=== PATIENT | male | born 1980 | race Caucasian/White ===

== ENCOUNTER 2019-10-24 02:17 | Inpatient (IN) ==
[2019-10-24] MEDS ORDERED: NS 1,000 ML IV ONE ×3 (02:44→11:05)
[2019-10-24] MEDS ORDERED: ATIVAN IV ONE ×3 (02:44→11:05)
--- NOTE | 2019-10-24 02:58 | PROVIDER DOCUMENTATION ---
HPI-Psychological Disorder - General Chief Complaint: Withdrawals Stated Complaint: MUSCEL SPASMS Time Seen by Provider: 10/24/19 02:44 Source: patient Allergies/Adverse Reactions: Patient Allergies Allergy/AdvReac Type Severity Reaction Status Date / Time No Known Allergies Allergy Verified 10/24/19 02:32 Home Medications: Home Medication List Medication Instructions Recorded Confirmed Last Taken Type NK [No Home Medications] 10/24/19 10/24/19 Unknown History - History of Present Illness-Psych Nature of Presenting Problem: Patient notes that he took one of his girlfriend's Seroquel this evening to help him sleep. He notes that he normally takes a drug that he gets from the gas station, "[employer] Red" about 14 tablets daily. He notes that he was out today and felt that he might be withdrawing. Notes that since taking the Seroquel, he has not been able to stop moving his body and feels that he is having muscle cramps. Onset/Duration: reports: this evening Timing: reports: still present, getting worse Severity: reports: moderate Situational problems related to:: reports: N/A Psychiatric Complaints: reports: ingestion Substance Use: reports: opiates Previous psych related hospitalizations?: No Similar Symptoms Previously?: No Recently seen or treated by another doctor?: No - Suicidal Ideation Clinician's estimation of suicide risk?: low risk Review of Systems - Adult - REVIEW OF SYSTEMS - ADULT Constitutional: reports: no symptoms reported Eyes: reports: no symptoms reported Ears, Nose, Mouth & Throat: reports: no symptoms reported Cardiovascular: reports: no symptoms reported Respiratory: reports: no symptoms reported Gastrointestinal: reports: no symptoms reported Genitourinary: reports: no symptoms reported Musculoskeletal: reports: see HPI Integumentary: reports: no symptoms reported Neurological: reports: no symptoms reported Psychiatric: reports: see HPI Endocrine: reports: no symptoms reported Hematologic/Lymphatic: reports: no symptoms reported Allergic/Immunologic: reports: no symptoms reported All Other Systems: Reviewed and Negative Past History - Adult - PAST MEDICAL HISTORY-ADULT Review of Records: reports: Old Records Reviewed, Nursing Assessment Review, Me dications Reviewed, Social history reviewed & non-contributory. Major Childhood Illnesses: reports: denies history Cardiovascular: reports: denies history Respiratory: reports: denies history Gastrointestinal: reports: denies history Obstetrical/Gynecological: reports: denies history Genitourinary: reports: denies history Musculoskeletal: reports: denies history Neurological: reports: denies history Endocrine/Immune: reports: denies history Other Conditions: reports: denies history - IMMUNIZATION STATUS Childhood Immunizations: See Nurse Assessment Flu Vaccine: See Nurse Assessment - FAMILY HISTORY Family History: reviewed, not pertinent Physical Exam-Psych Focus - Physical Exam-Psych Initial Vital Signs Reviewed: Yes Appearance: no apparent distress, no memory impairment, anxious, disheveled Neurological: oriented x 3 Behavior/Eye Contact/Speech: cooperative, good eye contact, normal speech Thoughts/Hallucinations: normal thought pattern HENMT: normocephalic/atraumatic, moist mucous membranes, normal ENT inspection Neck: non-tender, full range of motion, supple Respiratory: chest non-tender, lungs clear, normal breath sounds Cardiovascular: normal peripheral pulses, regular rate, rhythm, no edema, no gallop, no JVD, no murmur Abdominal Exam: normal bowel sounds, non tender Lymphatic: no adenopathy Back Exam: normal inspection Extremity: normal range of motion, non-tender, other (choreiform movements of bilateral UE and LE) Integumentary: normal color, normal turgor, warm/dry Progress - PLAN OF CARE/RESULTS Progress/Plan/Lab Results: Vital Signs - 8 hr 10/24/19 04:00 10/24/19 05:00 10/24/19 07:16 Temperature Pulse Rate 127 H 120 H 98 H Respiratory Rate 24 25 H 16 Blood Pressure 158/105 164/113 141/80 O2 Sat by Pulse Oximetry 95 98 93 L 10/24/19 08:26 10/24/19 08:52 Temperature 98.9 F Pulse Rate 99 H 73 Respiratory Rate 16 16 Blood Pressure 150/093 127/84 O2 Sat by Pulse Oximetry 99 Laboratory Results - last 24 hr 10/24/19 10/24/19 10/24/19 00:29 00:29 00:29 WBC 8.21 RBC 5.28 Hgb 16.3 Hct 47.7 MCV 90.3 MCH 30.9 MCHC 34.2 RDW Std Deviation 12.8 Plt Count 207 MPV 10.2 Immature Gran % (Auto) 0.2 Neut % (Auto) 51.4 Lymph % (Auto) 37.1 [place] % (Auto) 8.9 Eos % (Auto) 1.9 Baso % (Auto) 0.5 Immature Gran # (Auto) 0.02 Neut # (Auto) 4.21 Lymph # (Auto) 3.05 [place] # (Auto) 0.73 H Eos # (Auto) 0.16 Baso # (Auto) 0.04 Sodium 141 Potassium 3.9 Chloride 103 Carbon Dioxide 26 Anion Gap 12 BUN 7 L Creatinine 0.7 Estimated GFR/1.73 m2 > 60 BUN/Creatinine Ratio 10 Glucose 126 H Calculated Osmolality 281 Calcium 9.0 Total Bilirubin 0.28 AST 15 ALT 17 Alkaline Phosphatase 60 Creatine Kinase 57 Troponin T High Sens < 6 Total Protein 6.1 L Albumin 4.0 Globulin 2.1 Albumin/Globulin Ratio 1.9 Urine Opiates Screen Ur Oxycodone Screen Ur Methadone, Qual Ur Barbiturates Screen Ur Phencyclidine Scrn Ur Amphetamines Screen U Benzodiazepines Scrn Urine Cocaine Screen U Cannabinoids Screen 10/24/19 00:35 WBC RBC Hgb Hct MCV MCH MCHC RDW Std Deviation Plt Count MPV Immature Gran % (Auto) Neut % (Auto) Lymph % (Auto) [place] % (Auto) Eos % (Auto) Baso % (Auto) Immature Gran # (Auto) Neut # (Auto) Lymph # (Auto) [place] # (Auto) Eos # (Auto) Baso # (Auto) Sodium Potassium Chloride Carbon Dioxide Anion Gap BUN Creatinine Estimated GFR/1.73 m2 BUN/Creatinine Ratio Glucose Calculated Osmolality Calcium Total Bilirubin AST ALT Alkaline Phosphatase Creatine Kinase Troponin T High Sens Total Protein Albumin Globulin Albumin/Globulin Ratio Urine Opiates Screen NONE DETECTED Ur Oxycodone Screen NONE DETECTED Ur Methadone, Qual NONE DETECTED Ur Barbiturates Screen NONE DETECTED Ur Phencyclidine Scrn NONE DETECTED Ur Amphetamines Screen NONE DETECTED U Benzodiazepines Scrn NONE DETECTED Urine Cocaine Screen NONE DETECTED U Cannabinoids Screen NONE DETECTED Orders Category Date Time Status Nursing- Obtain EKG ONCE Care 10/24/19 02:37 Active Restraint Discont. NonViolent NOW Care 10/24/19 05:32 Completed Restraint Initiate NonViolent ONCE Care 10/24/19 06:35 Active CHEST-PORTABLE [RAD] Stat Exams 10/24/19 11:07 Ordered ACETAMINOPHEN [TDM] Stat Lab 10/24/19 02:55 Received ALCOHOL BLOOD Stat Lab 10/24/19 11:06 Ordered CBC WITH ELECTRONIC DIFF [HEME] Stat Lab 10/24/19 00:29 Completed CK PROFILE [SP CHEM] Stat Lab 10/24/19 00:29 Completed CK TOTAL [CHEM] Stat Lab 10/24/19 11:07 Ordered COMPREHENSIVE METABOLIC PANEL [CHEM] Stat Lab 10/24/19 00:29 Completed SALICYLATES [TDM] Stat Lab 10/24/19 02:55 Received TROPONIN T HIGH SENSITIVITY Stat Lab 10/24/19 00:29 Completed URINE DRUG SCREEN Stat Lab 10/24/19 00:35 Completed 0.9% Sodium Chloride Inj [Ns] 1,000 ml Med 10/24/19 02:44 Discontinued IV 999 mls/hr 0.9% Sodium Chloride Inj [Ns] 1,000 ml Med 10/24/19 07:43 Discontinued IV 999 mls/hr 0.9% Sodium Chloride Inj [Ns] 1,000 ml Med 10/24/19 11:05 Active IV 999 mls/hr Diphenhydramine [Benadryl] Med 10/24/19 07:38 Discontinued 50 mg IV NOW ONE Haloperidol Lactate [Haldol] Med 10/24/19 09:40 Discontinued 5 mg IV NOW ONE Haloperidol Lactate [Haldol] Med 10/24/19 11:05 Discontinued 5 mg IV NOW ONE Lorazepam [Ativan] Med 10/24/19 03:09 Discontinued 2 mg .ROUTE .STK-MED ONE Lorazepam [Ativan] Med 10/24/19 02:44 Discontinued 2 mg IV NOW ONE Lorazepam [Ativan] Med 10/24/19 03:10 Discontinued 2 mg IV NOW ONE Lorazepam [Ativan] Med 10/24/19 11:05 Discontinued 2 mg IV NOW ONE Water, Sterile Inj [Sterile Water Inj.] Med 10/24/19 07:38 Discontinued 1.2 ml INJ NOW ONE Ziprasidone [Geodon] Med 10/24/19 07:38 Discontinued 20 mg IM NOW ONE EKG [EKG] Stat Ther 10/24/19 02:50 Draft Result Diagrams: 10/24/19 00:29 10/24/19 00:29 - REASSESSMENT Reassessment #1 Time Reassessed: 04:00 Status: other (Poison Control contacted. symptomatic treatment and support recommended.) Reassessment #2 Time Reassessed: 07:42 Status: unchanged (Case discussed with Dr. Pritchett at shift change, patient still agitated and tachycardic.) Reassessment #3 Time Reassessed: 11:08 Status: worsening (Patient continues to be combative, altered. Requires re straints. Will ask hospitalist to admit. Will continue to chemically restrain as well) - CONSULTS/PCP/HOSPITALIST Notification #1 *Consult/PCP/Hospitalist*: SIVA Gibbs Time Discussed: 11:18 Consult Disposition: Will see in ED, Admit - CHANGE OF SHIFT REPORT (ED Provider) 1 Report Given and Care Transferred to:: Dr. Guzmán Time of Transfer: 07:00 Items Pending: Other (Poison Control monitoring time period) Departure - Departure Date of Disposition Decision: 10/24/19 Time of Disposition Decision: 11:09 DIAGNOSIS: Substance abuse requiring inpatient treatment, Altered mental status associated with intoxication, Psychomotor agitation Disposition: ADMITTED INPATIENT 09 Certified Medical Emergency: Emergent Condition: Fair Referrals and Follow-Ups: None,PCP [Primary Care Provider] - - Critical Care Note This patient required my direct & personal management of CC.: Yes Total Time (mins): 40 Critical Care Statement: This patient required my direct personal management to treat or rule out processes, the absence of which, could potentiallly result in sudden, clinically significant life or limb threatening deterioration. Attestation - Physician/ GRACE Attestation Patient care was provided by Advanced Practice Provider:: No The physician spent face to face time with patient:: Yes Advanced Practice Provider documentation review:: Supervising physician onsite and consulted in the evaluation and care of this patient. The physician did have a face to face encounter with the patient.
[2019-10-24 03:07] LABS: BASO# 0.04 X1000 (0.0-0.2); BASO% 0.5 % (0.0-0.8); EOS# 0.16 X1000 (0.0-0.7); EOS% 1.9 % (0.0-10.0); HEMATOCRIT 47.7 % (42.0-52.0); HEMOGLOBIN 16.3 g/dL (14.0-18.0); IMM GRAN# 0.02 X1000 (0.0-0.04); IMM GRAN% 0.2 % (0.0-0.5); LYMPH# 3.05 X1000 (1.2-3.4); LYMPH% 37.1 % (20.5-51.1); MCH 30.9 PG (27-31); MCHC 34.2 g/dL (33-37); MCV 90.3 FL (81-99); MONO# 0.73 X1000 (0.11-0.59); MONO% 8.9 % (1.7-9.3); MPV 10.2 FL (7.4-10.4); NEUT# 4.21 X1000 (1.4-6.5); NEUT% 51.4 % (42.2-75.2); PLT 207 X1000 (130-400); RBC 5.28 XMIL (4.7-6.1); RDW 12.8 % (11.5-14.5); WBC 8.21 X1000 (4.8-10.8)
[2019-10-24] MEDS ORDERED: ATIVAN ONE (03:09)
[2019-10-24 03:19] LABS: AGAP 12; ALB/GLOB RATIO 1.9; ALKALINE PHOSPHATASE 60 U/L (32-122); BUN 7 mg/dL (8-22); CHLORIDE 103 mmol/L (98-107); CK PROFILE 57 U/L (24-204); COSMO 281; CREATININE 0.7 mg/dL (0.7-1.2); ESTIMATED GFR > 60; GLUCOSE 126 mg/dL (70-104); GOT 15 U/L (10-34); GPT 17 U/L (10-44); POTASSIUM 3.9 mmol/L (3.5-5.1); SODIUM 141 mmol/L (136-145); TCO2 26 mmol/L (25-35); TOTAL BILIRUBIN 0.28 mg/dL (0.20-1.00); TOTAL PROTEIN 6.1 g/dL (6.3-8.3)
[2019-10-24 03:28] LABS: UR AMPHETAMINES QUAL NONE DETECTED (NONE DETECT); UR BARBITUATES QUAL NONE DETECTED (NONE DETECT); UR BENZODIAZEPIN QUAL NONE DETECTED (NONE DETECT); UR CANNABINOIDS QUAL NONE DETECTED (NONE DETECT); UR COCAINE QUAL NONE DETECTED (NONE DETECT); UR METHADONE QUAL NONE DETECTED (NONE DETECT); UR OPIATES QUAL NONE DETECTED (NONE DETECT); UR OXYCODONE QUAL NONE DETECTED (NONE DETECT); UR PCP QUAL NONE DETECTED (NONE DETECT)
[2019-10-24] MEDS ORDERED: STERILE WATER INJ. INJ ONE (07:38)
[2019-10-24] MEDS ORDERED: GEODON IM ONE (07:38)
[2019-10-24] MEDS ORDERED: BENADRYL IV ONE (07:38)
--- NOTE | 2019-10-24 07:57 | EKG Report ---
Test Performed on : 10/24/2019 02:50:55 AM Test Reason : ED. NO EKG ORDER FOR MUSE Blood Pressure : / mmHG Vent. Rate : 112 BPM Atrial Rate : 112 BPM P-R Int : 150 ms QRS Dur : 086 ms QT Int : 330 ms P-R-T Axes : 058 064 044 degrees QTc Int : 450 ms Sinus tachycardia. with premature atrial complexes. with aberrant conduction. Possible Left atrial enlargement Borderline ECG When compared with ECG of 14-JAN-2017 21:35, aberrant conduction. is now present Unconfirmed Result
[2019-10-24] MEDS ORDERED: HALDOL IV ONE ×3 (09:40→14:09)
[2019-10-24 11:18] LABS: ACETAMINOPHEN < 1.2 ug/mL (10-30); SALICYLATES < 3.00 mg/dL (3-10)
--- NOTE | 2019-10-24 11:22 | Diag Imaging Result Doc PS360 ---
CHEST-PORTABLE - 10/24/2019 INDICATION: AMS COMPARISON: 01/14/2017 FINDINGS: Lung volumes are much lower. There is some hazy atelectasis in both lung bases. Heart size is normal. No pneumothorax or pleural effusion. IMPRESSION: Low lung volumes. Nonspecific bibasilar atelectasis. Electronically signed by Remi Gandhi 10/24/2019 11:20 AM
[2019-10-24] MEDS ORDERED: KETAMINE IV ONE (11:56)
--- NOTE | 2019-10-24 12:18 | HISTORY AND PHYSICAL ---
PRIMARY CARE PHYSICIAN: None. CHIEF COMPLAINT: Possible withdrawals and muscle. HISTORY OF PRESENTING ILLNESS: This is a 38-year-old male, who presents to [facility] after he states that he thinks he is in" withdrawals." He states he normally takes a drug that he gets from the gas station called [employer] Red and takes approximately 14 tablets daily. States that he takes those throughout the day, and that he was out and felt like that he might be withdrawing, so he took 1 of his girlfriend's Seroquel and now is not able to stop with body movements and muscle spasms and cramps. He has become agitated, was given several doses of Ativan 2 mg IV x1, a dose of Haldol 5 mg IV x1, Benadryl 50 mg IV x1, Geodon 20 mg IM x1 with minimal improvement, now in 4 point restraints due to combativeness, agitation and confusion for safety. ER did contact Poison Control, who felt that we should treat his symptomatic treatment, and support was recommended. So, he will be admitted to the intensive care unit for further evaluation and treatment. PAST MEDICAL HISTORY: None. PAST SURGICAL HISTORY: None. FAMILY HISTORY: Unknown. SOCIAL HISTORY: He smokes a pack of cigarettes a day. Uses alcohol occasionally. Does not use any street drugs, but does buy the Mari Red red pills at a gas station, and takes approximately 14 to 15 daily throughout the day. ALLERGIES: He has no known drug allergies. HOME MEDICATIONS: He does not take any prescribed medications on a routine basis. REVIEW OF SYSTEMS: Unable to obtain from patient at this time due to his altered mental status and agitation. LABORATORY DATA: Showed a white blood cell count of 8.21, hemoglobin 16.3, hematocrit 47.7, platelets 207. Sodium 141, potassium 3.9, chloride 103, CO2 26. BUN of 7, creatinine 0.7, glucose 126. Salicylate level was less than 3. Acetaminophen less than 1.2. Urine drug screen showed none detected. IMAGING STUDIES: Chest x-ray showed low lung volumes and nonspecific bibasilar atelectasis. EKG showed sinus tachycardia with PACs with aberrant conduction at 112. PHYSICAL EXAMINATION: VITAL SIGNS: On arrival he had a temperature of 97.7 degrees, pulse 121, respirations 22, blood pressure 158/101. Currently blood pressure is down to 127/87, heart rate is down to 73. HENT: Normocephalic, atraumatic. Normal ENT inspection. Oropharynx and nares are clear. EYES: Pupils are equal, round, reactive to light and accommodation. Extraocular movements are intact. NECK: Normal inspection, normal range of motion. LUNGS: Clear to auscultation bilaterally with equal lung expansion and chest wall movement. HEART: Regular rate and rhythm. No murmurs, rubs, or gallops. ABDOMEN: Soft, nontender, nondistended. Bowel sounds are present x4 quadrants. MUSCULOSKELETAL: Has 5/5 strength. He is noted to have some choreiform movements to bilateral upper and lower extremities. NEUROLOGICAL: The cranial nerves 2-12 appear grossly intact. ASSESSMENT: 1. Drug overdose. 2. Altered mental status with agitation and psychosis. 3. Tobacco abuse. PLAN: He will be admitted to the intensive care unit, placed on telemetry, clear liquid diet. We will give him Geodon 10 mg IM q. 4 hours p.r.n., normal saline at 125 mL an hour, Ativan 1 mg IV q. 4 hours p.r.n., Zofran 4 mg IV q. 4 hours p.r.n., and continue his 4-point restraints, and further orders after seen by attending. Dictated by SIVA Thurston for Xavier Boone MD cc: SIVA Thurston MD I agree with most components of history, physical, assessment and plan. A separate addendum has been dictated. MTDD
[2019-10-24] MEDS ORDERED: ZOFRAN IV PRN (12:26)
[2019-10-24] MEDS ORDERED: GEODON IM PRN ×2 (12:26→14:38)
[2019-10-24] MEDS ORDERED: STERILE WATER INJ. INJ PRN (12:26)
[2019-10-24] MEDS: ATIVAN IV PRN ×3 (13:50→20:54)
[2019-10-24] MEDS: NS 1,000 ML IV SCH ×2 (13:50→20:54)
--- NOTE | 2019-10-24 13:50 | Diag Imaging Result Doc PS360 ---
EXAM: CT HEAD W/O CONTRAST INDICATION: ams TECHNIQUE: This exam was performed using automated exposure control, adjustment of mA or kV according to patient size, and/or use of iterative reconstruction technique. COMPARISON: None. FINDINGS: There is no definite acute infarct given the limited sensitivity of CT versus MRI. There are multiple coarse calcifications mainly in the periventricular region bilaterally. However, the largest calcifications are in the right frontal lobe subcortical white matter and right parietal lobe subcortical white matter. This is the result of a chronic process like an old infection, possibly in utero. Old calcifications related to toxoplasmosis is another possibility in the right clinical scenario. Otherwise, there is no discrete intracranial mass, mass effect, or intracranial hemorrhage. There is no evidence of cerebral edema. There is no hydrocephalus. The surrounding soft tissues and bony structures are essentially unremarkable. IMPRESSION: Multiple coarse parenchymal calcifications that are predominantly in the periventricular regions. Please see above discussion. No definite acute intracranial pathology. Electronically signed by Jorge A Jordan 10/24/2019 1:47 PM
[2019-10-24 14:30] LABS: URINE SOURCE CATH
[2019-10-24 14:39] LABS: BILIRUBIN URINE NEGATIVE (NEGATIVE); BLOOD URINE NEGATIVE (NEGATIVE); COLOR YELLOW; GLUCOSE URINE NEGATIVE (NEGATIVE); KETONE URINE NEGATIVE (NEGATIVE); LEUKOCYTES URINE NEGATIVE (NEGATIVE); NITRITE URINE NEGATIVE (NEGATIVE); PROTEIN URINE NEGATIVE (NEGATIVE); SP GRAVITY URINE 1.013; TURBIDITY URINE CLEAR (CLEAR); UROBILINOGEN URINE NORMAL (NORMAL)
[2019-10-24 14:40] LABS: UR EPITHELIAL CELLS <10 /HPF (<10); URINE BACTERIA NEGATIVE /HPF; URINE RBC <10 /HPF (<10); URINE WBC <10 /HPF (<10)
--- NOTE | 2019-10-24 15:12 | HISTORY AND PHYSICAL ---
ADDENDUM: This is an addendum to the history and physical dictated by the nurse practitioner. I agree with most components of the history and physical, assessment, and plan. SUMMARY: In brief, Mr. Rich is a 38-year-old man who does not have previous record in my system, but who was brought into the hospital with complaints of withdrawal. On arrival to the ER, the patient told the emergency room team that he took one of his girlfriend's Seroquel to help him sleep. He normally used to take Mari Red about 14 tablets a day, but he was out of those and he felt he was probably withdrawing from it. Since he took Seroquel, he was not able to stop moving his body and felt like he was having muscle cramps, so he decided to come to the hospital. He was extremely confused at the time of my encounter and I could not elicit a proper history out of him. PHYSICAL EXAMINATION: VITAL SIGNS: Temperature 98 degrees, pulse 104, respiratory 18, blood pressure 148/79. He was saturating 96% on room air. GENERAL: He was extremely agitated. He was in four-point restraints at the time of my evaluation in the ER. HEENT: His oral cavity was dry. RESPIRATORY: Air entry bilaterally equal. No wheeze, rhonchi, or crackles. CARDIOVASCULAR: S1, S2 normal, regular. No murmur, rub, or gallop. ABDOMEN: Soft, nontender. EXTREMITIES: No lower extremity edema. He did not have any visible kapadia on his antecubital fossa. NEUROLOGIC: Pupils were bilaterally equal and active to light. He did not appear to have any facial droop or any facial asymmetry. He was confused, intermittently drowsy and had received multiple intravenous medications in the emergency room so I could not elicit any proper history. LABORATORY DATA: WBC of 8.2, hemoglobin 16.3, platelet count 207,000. His BUN was 0.8, BUN was 7, creatinine 0.7. He did have slight elevation in creatine kinase to 286. His urinalysis was unremarkable. Troponin was undetectable. His urine toxicology was unremarkable. There was no alcohol. Microbiology; no data. Head CT had multiple coarse parenchymal calcifications in the periventricular region which could suggest prior intracranial infection. There was no mass effect or intracranial hemorrhage. Chest x-ray had low lung volumes. Electrocardiogram had sinus tachycardia with premature atrial complexes and aberrant conduction. ASSESSMENT AND PLAN: Acute toxic encephalopathy, likely in the setting of ingestion of Seroquel. The amount and intention is currently not known. He was also reported to be taking Mari Red is not approved by the FDA. His head CT did not have any intracranial hemorrhage. Once during my encounter, he mentioned he never had suicidal ideation, though his history was questionable. We will keep him on four-point restraints until his mental status improves, start him on intravenous fluids, intravenous lorazepam, intravenous haloperidol and intramuscular ziprasidone as needed. I will also follow up with frequent EKGs to monitor him from QT interval prolongation. I tried to reach out to his or girlfriend. However, she did not last picker and there was no option to leave a voice message. TIME SPENT: 35 minutes of critical care time was spent taking care of this patient. Plan of care discussed with the nursing team. cc: Xavier Boone MD
[2019-10-24] MEDS: HALDOL IV PRN ×2 (18:33→22:43)
--- NOTE | 2019-10-24 20:06 | EKG Report ---
Test Performed on : 10/24/2019 7:44:57 PM Test Reason : Follow up QTc. Blood Pressure : / mmHG Vent. Rate : 098 BPM Atrial Rate : 098 BPM P-R Int : 150 ms QRS Dur : 088 ms QT Int : 356 ms P-R-T Axes : 056 057 039 degrees QTc Int : 454 ms Normal sinus rhythm. Normal ECG When compared with ECG of 24-OCT-2019 02:50, (Unconfirmed) aberrant conduction. is no longer present Confirmed by Alden SANTACRUZ, Brian Krishnamurthy ([id number]) on 10/25/2019 5:30:54 PM
[2019-10-25] MEDS: ATIVAN IV PRN ×3 (00:02→14:40)
[2019-10-25 05:42] LABS: BASO# 0.04 X1000 (0.0-0.2); BASO% 0.5 % (0.0-0.8); EOS# 0.08 X1000 (0.0-0.7); EOS% 0.9 % (0.0-10.0); HEMOGLOBIN 12.7 g/dL (14.0-18.0); IMM GRAN# 0.02 X1000 (0.0-0.04); IMM GRAN% 0.2 % (0.0-0.5); LYMPH# 1.73 X1000 (1.2-3.4); LYMPH% 20.4 % (20.5-51.1); MCH 30.9 PG (27-31); MCHC 33.4 g/dL (33-37); MCV 92.5 FL (81-99); MONO# 0.78 X1000 (0.11-0.59); MONO% 9.2 % (1.7-9.3); MPV 9.5 FL (7.4-10.4); NEUT# 5.81 X1000 (1.4-6.5); NEUT% 68.8 % (42.2-75.2); PLT 174 X1000 (130-400); RBC 4.11 XMIL (4.7-6.1); RDW 12.6 % (11.5-14.5); WBC 8.46 X1000 (4.8-10.8)
[2019-10-25] MEDS: NS 1,000 ML IV SCH (05:48)
[2019-10-25 06:15] LABS: AGAP 11; BUN 8 mg/dL (8-22); CALCIUM 8.4 mg/dL (8.8-10.2); CHLORIDE 109 mmol/L (98-107); COSMO 280; CREATININE 0.6 mg/dL (0.7-1.2); ESTIMATED GFR > 60; GLUCOSE 70 mg/dL (70-104); POTASSIUM 3.6 mmol/L (3.5-5.1); SODIUM 142 mmol/L (136-145); TCO2 22 mmol/L (25-35)
[2019-10-25] MEDS ORDERED: 1/2 NS 1,000 ML IV SCH (06:45)
--- NOTE | 2019-10-25 08:04 | EKG Report ---
Test Performed on : 10/25/2019 07:39:46 AM Test Reason : Follow up QTc. Blood Pressure : / mmHG Vent. Rate : 088 BPM Atrial Rate : 088 BPM P-R Int : 156 ms QRS Dur : 082 ms QT Int : 386 ms P-R-T Axes : 056 052 051 degrees QTc Int : 467 ms Normal sinus rhythm. with sinus arrhythmia. Normal ECG When compared with ECG of 24-OCT-2019 19:44, (Unconfirmed) No significant change was found Confirmed by Alden SANTACRUZ, Brian Krishnamurthy ([id number]) on 10/25/2019 5:31:24 PM
[2019-10-25] MEDS ORDERED: BENADRYL IV PRN (08:55)
[2019-10-25] MEDS ORDERED: NICODERM PATCH TD SCH (09:00)
--- NOTE | 2019-10-25 09:15 | PROGRESS NOTE ---
DATE: 10/25/2019 INTERVAL HISTORY: Mr. Rich remained in 4-point restraints. His EKG did not have acute interval prolongation. He needed multiple doses of intravenous lorazepam at nighttime. His labs had hyperchloremia, so his IV fluids were changed in the morning by me. I could not reach out to his fiancee or yesterday. SUBJECTIVE: Mr. Rich is sedated and is not able to contribute to the history meaningfully. VITALS: Temperature 98.5 degrees, pulse 65, respiratory rate 18. His blood pressure is 135/87. He is saturating 99% on room air. PHYSICAL EXAMINATION: General examination: Does not appear in any acute distress. Oral cavity: Dry. Lungs: Air entry bilaterally equal. No wheeze, rhonchi, crackles. Cardiovascular: S1, S2 normal. Not tachycardic. No murmur or gallop. Abdomen: Soft, nontender. Extremities: No lower extremity edema. He is in four-point restraints. Neurologic: Pupils are bilaterally equal reacting to light. There is no facial droop. He easily wakes up with strong verbal stimuli and starts becoming fidgety. He has a urine catheter. Input and output suggests -525 mL. LABS: Hemoglobin of 12.7 platelet of 174, BUN is 8, creatinine 0.6, chloride 109, bicarbonate is 22. Urine toxicology yesterday was negative. MICROBIOLOGY: No microbiological data. X-RAYS: Head CT yesterday had multiple coarse parenchymal calcification in the periventricular region. ASSESSMENT AND PLAN: 1. Acute toxic encephalopathy due to ingestion of multiple tablets of Seroquel. Apparently, patient's fiancee had called intensive care unit yesterday, and had informed them about the patient taking too many tablets of Seroquel, probably a quarter of a bottle. His head CT did not have any acute intracranial pathology. I will continue to monitor him supportively. I will keep him on intravenous lorazepam and add IV benadryl. I will only give intravenous haloperidol if above 2 doesn't work for his agitation. I would avoid anti-psychotics like Haloperidol and Ziprasidone for potential worsening of anti-dopaminergic medications. I will keep him on 4-point restraints and get serial EKG for QT prolongation. 2. Hyperchloremia. I will change intravenous fluids to half-normal saline and follow up with basic metabolic panel tomorrow. 3. Tobacco abuse. I will keep him on nicotine patch. DISPOSITION: I will continue to monitor patient inside hospital. Plan of care discussed with the nursing team. cc: MD TAMMIE Quiroga
[2019-10-25 20:38] VITALS: BP 165/92
--- NOTE | 2019-10-25 22:51 | EKG Report ---
Test Performed on : 10/25/2019 5:45:22 PM Test Reason : ROUTINE Blood Pressure : / mmHG Vent. Rate : 095 BPM Atrial Rate : 095 BPM P-R Int : 146 ms QRS Dur : 094 ms QT Int : 370 ms P-R-T Axes : 058 065 048 degrees QTc Int : 464 ms Normal sinus rhythm. Normal ECG When compared with ECG of 25-OCT-2019 07:39, No significant change was found Confirmed by Alden SANTACRUZ, Brian Krishnamurthy ([id number]) on 10/27/2019 11:48:30 AM
--- NOTE | 2019-10-26 16:27 | DISCHARGE SUMMARY ---
ADMISSION DATE: 10/24/2019 DISCHARGE DATE: 10/25/2019 DISCHARGE DISPOSITION: Patient left against medical advice. DISCHARGE DIAGNOSES: 1. Acute toxic encephalopathy due to ingestion of multiple tablets of Seroquel. 2. Hyperchloremia. 3. Tobacco abuse. 4. Anti-psychotic overdose - Unintentional as per my discussion with patient's valee OTHER DIAGNOSIS: Hypertension due to agitation. DISCHARGE MEDICATION: I could not reconcile. He was not listed to be taking any medications at home. VITALS SIGNS: At the time of discharge on review of records, temperature 97.4 degrees, pulse 82, respiratory 24, blood pressure 165/92. He was saturating 94% on room air. I could not perform physical examination at the time of discharge as the patient left against medical advice before I could see him the next day. LABS AT THE TIME OF ADMISSION AND DISCHARGE: WBC 8.4, hemoglobin 12.7, platelet 174,000, chloride 109, BUN 8, creatinine 0.9. Urine toxicology was negative. There was no alcohol detected. MICROBIOLOGY: None. IMAGING: During hospital admission head CT on presentation had multiple coarse parenchymal calcification, which were predominantly in the periventricular region without acute intracranial pathology. Chest x-ray had low lung volumes and it had nonspecific bibasilar atelectasis. Electrocardiogram on multiple occasions did not have acute interval prolongation. HOSPITAL COURSE SUMMARY: Mr. Rich is 38 years man who presented on 10/24/2019, with chief complaints of altered mental status. The patient initially reported to the emergency room that he used to take over the counter Mari Red, however, he was running out of those tablets and was feeling as if he was withdrawing, so he took several tablets of his girlfriend of [place]. After that, he felt his muscles were getting rigid and he was restless and he was having muscle cramps, he was sent to the hospital through emergency services. On arrival his temperature was 97.7 degrees, his pulse was 121, his respiratory rate was 22. His blood pressure was 158/101. His initial labs did not have leukocytosis. His electrolytes were within normal limit and his creatine kinase was 57 on presentation, which had slightly increased to 286 a few hours later. Microbiology did not have any growth. He was diagnosed with Seroquel overdose. The ER had consulted poison Control who had recommended supportive management and patient was admitted to ICU for further management. The patient was resuscitated with intravenous fluids and then was started on intravenous lorazepam and intravenous diphenhydramine as needed. Initially it required many medicines to help him calm down. Later on he had started becoming more stable. However, on my evaluation on the morning of discharge, he was still drowsy. Later on, I was informed that the patient had started becoming awake and alert and he was oriented x3 and he had decided to leave against medical advice. ADDENDUM: I was not able to reach out to the patient. However, I called his significant other who was listed as primary contact. She informed me that patient took Seroquel because he was withdrawing. Also, he did not have any suicidal or homicidal ideation.Today, he was feeling well and he had actually gone to work. I advised her that patient should seek ER care if he did not feel well or had suicidal or homicidal ideation. cc: Xavier Boone MD MTDD
== END 2019-10-25 21:09 | disposition left against medical advice (07) | DRG 917 ==
LOC: EDIPHOLD 02:17 → ED 02:17 → OBSVTOIN 12:09 → ICU 13:19
PROVIDERS: ATTEND Internal Medicine